=== PATIENT | female | born 1975 | race Caucasian/White ===

== ENCOUNTER → 2018-12-28 08:57 | Outpatient (POV) | payer MEDICARE, MEDICAID, SELFPAY ==
[2018-12-28 09:14] VITALS: BP 137/94; PULSE 76; RESP 18; O2SAT 99
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
== END ==
PROVIDERS: PCP Nurse Practitioner Family; Visit Provider Clinical Nurse Specialist Family Health
DX: M51.16 Intervertebral disc disorders with radiculopathy, lumbar region (principal)
CPT/HCPCS: 99202